=== PATIENT | female | born 1990 | race African-American/Black ===

== ENCOUNTER 2021-07-03 00:38 | Emergency (ER) | payer SELFPAY ==
[~2021-07-03] VITALS: Ht 165.1 cm; Wt 91.0 kg
[2021-07-03 00:45] VITALS: BP 152/93
[2021-07-03] MEDS ORDERED: PREDNISONE 20MG TABLET PO ONE (01:45)
[2021-07-03] MEDS ORDERED: IPRATROPIUM/ALBUTEROL 0.5-3(2.5)MG/3ML NEB HHN ONE (01:45)
[2021-07-03] MEDS ORDERED: ALBU6.7H15 INH (03:03)
[2021-07-03] MEDS ORDERED: P20 MT (03:03)
== END 2021-07-03 03:26 | disposition home or self-care (01) ==
LOC: ER 00:38
DX: J45.901 Unspecified asthma with (acute) exacerbation (principal); Z98.890 Other specified postprocedural states
CPT/HCPCS: 71045; 94640; 99283; J7512; Z7610

== ENCOUNTER 2021-08-17 16:06 | Emergency (ER) | payer MEDICAID ==
[~2021-08-17] VITALS: Ht 165.1 cm; Wt 86.0 kg
[~2021-08-17 16:06] MED LIST: ALBU6.7H15 INH; P20 MT
[2021-08-17] MEDS ORDERED: DEXAMETHASONE 4MG TABLET PO ONE (16:15)
[2021-08-17] MEDS ORDERED: IPRATROPIUM/ALBUTEROL 0.5-3(2.5)MG/3ML NEB HHN ONE (16:15)
[2021-08-17] MEDS ORDERED: ALBU05 NEB (17:41)
[2021-08-17] MEDS ORDERED: P50 MT (17:41)
[2021-08-17] MEDS ORDERED: ALBU6.7H9 INH (17:41)
[2021-08-17] MEDS ORDERED: ALBUTEROL (0.083%) 2.5MG/3ML NEB HHN ONE (17:45)
[2021-08-17 18:05] VITALS: BP 147/98
== END 2021-08-17 18:04 | disposition home or self-care (01) ==
LOC: ER 16:06
DX: J45.901 Unspecified asthma with (acute) exacerbation (principal); Z20.822 Contact with and (suspected) exposure to COVID-19
CPT/HCPCS: 71045; 81025; 93005; 94640; 99285; C9803; U0003; U0005; Z7610; J8540